=== PATIENT | female | born 1995 | race Caucasian/White ===

== ENCOUNTER 2021-03-14 14:43 | Inpatient (IN) | payer OTHER ==
[~2021-03-14] VITALS: Ht 165.1 cm; Wt 56.7 kg
[~2021-03-14 14:43] MED LIST: BENTYL 20MG TAB20 MG PO; FLAGYL500 MG PO; IBUPROFEN600 MG PO; KEFLEX CAP 500500 MG PO; OMNICEF 300 MG300 MG PO; TESSALON PERLE100 MG PO; ZITHROMAX500 MG PO
[2021-03-14 16:25] LABS: HEMOGLOBIN 14.9 gm/dl (12.3-15.3); RED BLOOD COUNT 4.98 M/UL (4.00-5.10)
[2021-03-14 16:42] LABS: BUN/CREATININE RATIO 12 (0-10)
[2021-03-15] MEDS ORDERED: BUPRENORPHIN-N1 EACH SL (05:18)
[2021-03-15 07:41] LABS: WHITE BLOOD COUNT 12.2 K/UL (4.5-11.0)
[2021-03-15 07:42] LABS: HEMOGLOBIN 12.4 gm/dl (12.3-15.3); RED BLOOD COUNT 4.29 M/UL (4.00-5.10)
[2021-03-16] MEDS ORDERED: DOXYCYCLINE HY100 M2 PO (09:21)
[2021-03-16] MEDS ORDERED: METRONIDAZOLE250 MG PO (09:21)
[2021-03-17 19:09] LABS: CHLAMYDIA TRACHOMATIS, NAA Positive (Negative); NEISSERIA GONORRHOEAE, NAA Positive (Negative)
== END 2021-03-16 11:17 | disposition home or self-care (01) | DRG 831 ==
LOC: ER1 14:43 → CDU 20:01 → OB 20:30
PROVIDERS: Physician Assistant; ADMIT Obstetrics & Gynecology
DX: O98.811 Other maternal infectious and parasitic diseases complicating pregnancy, first trimester (principal); A41.9 Sepsis, unspecified organism; O23.591 Infection of other part of genital tract in pregnancy, first trimester; O99.321 Drug use complicating pregnancy, first trimester; F15.10 Other stimulant abuse, uncomplicated; F12.10 Cannabis abuse, uncomplicated; Z3A.01 Less than 8 weeks gestation of pregnancy; O99.341 Other mental disorders complicating pregnancy, first trimester; F31.9 Bipolar disorder, unspecified; F90.9 Attention-deficit hyperactivity disorder, unspecified type; Z95.2 Presence of prosthetic heart valve
CPT/HCPCS: 36415; 80053; 80307; 81001; 83605; 84703; 85025; 87040; 87210; 96372; 96374; 96375; 99285; J0696; J1580; J1885; J2405; J2550; J7120; Q9967; U0002